=== PATIENT | male | born 1960 | race Caucasian/White ===

== ENCOUNTER 2017-02-21 19:55 | Emergency (ER) | payer MEDICAID ==
[~2017-02-21] VITALS: Ht 175.3 cm; Wt 81.6 kg
[2017-02-21 20:15] VITALS: BP 149/87
== END 2017-02-21 22:13 | disposition home or self-care (01) ==
LOC: ER 19:55
DX: S61.451A Open bite of right hand, initial encounter (principal); W54.0XXA Bitten by dog, initial encounter; Y93.89 Activity, other specified; Y99.8 Other external cause status; Y92.89 Other specified places as the place of occurrence of the external cause
CPT/HCPCS: 73110; 73130